=== PATIENT | female | born 1990 | race Caucasian/White ===

== ENCOUNTER 2017-10-09 09:32 | Emergency (ER) | payer OTHER ==
[2017-10-09] MEDS ORDERED: oxyCODONE/Acetamin 5/325 MG* TAB PO ONE (10:51)
[2017-10-09] MEDS ORDERED: Ketorolac INJ* 60 MG/2 ML VIAL IM ONE (11:32)
--- NOTE | 2017-10-09 11:37 | RAD ---
INDICATION: Atraumatic right shoulder pain COMPARISON: December 05, 2008 TECHNIQUE: AP, lateral, and oblique views were obtained. FINDINGS: The bony structures, joint spaces, and soft tissues are normal for age. The stomach is made of a bone island of the humeral head, unchanged. IMPRESSION: NEGATIVE EXAMINATION.
--- NOTE | 2017-10-09 11:40 | ED ---
Upper Extremity Pain - HPI Summary HPI Summary: Pt here w/ Rt shoulder pain. Has this intermittently on both sides but woke at 5am today with sharp pain and felt like her muscles were being ripped from the joint. Denies numbness, tingling, weakness. Pain w/ movement of shoulder which she reports is limited. Tried heat which helped while it was on but pain bad again when as soon as she takes it off. Has not tried ibuprofen yet as she's taken this a lot in the past w/o much relief. She reports she's allergic to the orange coating on motrin only, not motrin itself - has had other versions of ibuprofen w/o orange dye and tolerated well. No h/o recent fluoroquinolones, steroids or joints/tendon issues. Job requires lifting, cooking. - History of Current Complaint Chief Complaint: EDShoulderClaMichele Stated Complaint: RIGHT SHOULDER PAIN Time Seen by Provider: 10/09/17 11:13 Hx Obtained From: Patient Hx Last Menstrual Period: 08/14/16 - Allergies/Home Medications Allergies/Adverse Reactions: Allergies Allergy/AdvReac Type Severity Reaction Status Date / Time Ibuprofen [From Motrin] Allergy Nausea And Verified 10/09/17 09:56 Vomiting Home Medications: Home Medications DOXYcycline CAP(*) [DOXYcycline 100MG CAP(*)] 1 cap PO BID 10/09/17 [History Confirmed 10/09/17] PMH/Surg Hx/FS Hx/Imm Hx Previously Healthy: Yes Endocrine/Hematology History: Denies: Hx Diabetes Cardiovascular History: Denies: Hx Congestive Heart Failure, Hx Hypertension Respiratory History: Denies: Hx Asthma History: Denies: Hx Renal Disease Sensory History: Reports: Hx Contacts or Glasses - GLASSES Denies: Hx Hearing Aid Opthamlomology History: Reports: Hx Contacts or Glasses - GLASSES Neurological History: Reports: Hx Headaches - ABOUT ONCE A WEEK Psychiatric History: Reports: Hx Depression, Hx Community Mental Health Tx - Yaen Vieira says "yes." Flaquita said she sees Charlene Gray. MOMS rpt inaccurate, Other Psychiatric Issues/Disorders - Patient was on Zoloft for depression. Discontinued 6-7 months ago. Denies: Hx Anxiety, Hx Attention Deficit Hyperactivity Disorder, Hx Eating Disorder, Hx Panic Disorder, Hx Post Traumatic Stress Disorder, Hx Inpatient Treatment, Hx Schizophrenia, Hx Bipolar Disorder, Hx Suicide Attempt, Hx of Violent Episodes Against Others, Hx Substance Abuse - Surgical History Surgery Procedure, Year, and Place: TUBAL LIGATION, CERVICAL BX Hx Anesthesia Reactions: No Infectious Disease History: No Infectious Disease History: Denies: Traveled Outside the [place] in Last 30 Days - Family History Known Family History: Positive: Cardiac Disease, Hypertension, Respiratory Disease - Asthma - Social History Occupation: Employed Full-time Alcohol Use: Rare Hx Substance Use: No Substance Use Type: Reports: None Hx Tobacco Use: Yes Smoking Status (MU): Current Every Day Smoker Amount Used/How Often: 1 pack for 4-5 days Review of Systems Constitutional: Negative Negative: Fever, Chills, Fatigue Cardiovascular: Negative Negative: Palpitations, Chest Pain Respiratory: Negative Negative: Shortness Of Breath, Cough Gastrointestinal: Negative Negative: Vomiting, Nausea Positive: no symptoms reported Positive: Arthralgia, Myalgia, Decreased ROM. Negative: Edema Skin: Negative Neurological: Negative Psychological: Normal All Other Systems Reviewed And Are Negative: Yes Physical Exam Triage Information Reviewed: Yes Vital Signs On Initial Exam: Initial Vitals Temp Pulse Resp BP Pulse Ox 97.6 F 78 16 119/59 100 10/09/17 09:34 10/09/17 09:34 10/09/17 09:34 10/09/17 09:34 10/09/17 09:34 Vital Signs Reviewed: Yes Appearance: Positive: Well-Appearing, Well-Nourished, Pain Distress - not at rest, only w/ movement of shoulder on Rt Skin: Positive: Warm, Dry - no erythema, no ecchymosis over affected area Head/Face: Positive: Normal Head/Face Inspection Eyes: Positive: Normal, EOMI ENT: Positive: Hearing grossly normal, Pharynx normal - mucosa moist Neck: Positive: Supple Respiratory/Lung Sounds: Positive: Breath Sounds Present Cardiovascular: Positive: Normal, Pulses are Symmetrical in both Upper and Lower Extremities Abdomen Description: Positive: Nontender, Soft Musculoskeletal: Positive: Strength/ROM Intact - Rt elbow, wrist, phalanges, Limited @ - Rt shoulder - limited w/ abduction, flexion, internal/external rotation; pain w/ empty can Neurological: Positive: Normal, Sensory/Motor Intact, Alert, Oriented to Person Place, Time, CN Intact II-III Psychiatric: Positive: Normal Diagnostics - Vital Signs Vital Signs Temp Pulse Resp BP Pulse Ox 10/09/17 10:59 69 98 10/09/17 10:57 16 10/09/17 10:30 67 104/57 98 10/09/17 10:00 73 120/60 97 10/09/17 09:47 81 117/61 98 10/09/17 09:34 97.6 F 78 16 119/59 100 - Laboratory Lab Statement: Any lab studies that have been ordered have been reviewed, and results considered in the medical decision making process. Course/Dx - Diagnoses Provider Diagnoses: Right shoulder pain Discharge - Discharge Plan Condition: Stable Disposition: HOME Patient Education Materials: Shoulder Pain (ED) Forms: *Work Release Referrals: Vick Badillo MD [Primary Care Provider] - Additional Instructions: Rest, ice alternating with heat and gentle stretches Ibuprofen 600mg every 6 hours with food alernating with acetaminophen 650mg every 6 hours for pain You may also try a topical analgesic (ie. biofreeze, etc) Use sling for comfort only - make sure to remove arm and move fingers, wrist, elbow, shoulder to prevent atrophy/stiffness Call PCP Wednesday to schedule appointment this week if pain persists. *If you develop numbness, tingling, weakness, return to ED
[2017-10-09 12:25] VITALS: BP 100/53
== END 2017-10-09 12:25 | disposition home or self-care (01) ==
LOC: ED 09:32
DX: M25.511 Pain in right shoulder (principal); F17.210 Nicotine dependence, cigarettes, uncomplicated
CPT/HCPCS: 99283; A9270-GY; J1885

== ENCOUNTER 2018-01-04 12:03 | Emergency (ER) | payer OTHER ==
[2018-01-04 13:04] LABS: ABS Basophils 0 10^3/ul (0-0.2); ABS Eosinophils 0.1 10^3/ul (0-0.6); ABS Monocytes 1.1 10^3/ul (0-0.8); ABS Neutrophils 5.7 10^3/ul (1.5-7.7); ABS Nucleated RBC 0 10^3/ul; Eosinophil % 0.7 % (0-6); Hematocrit 36 % (35-47); Hemoglobin 12.3 g/dl (12.0-16.0); Lymphocyte % 22.5 % (25-47); Mean Corpuscular HGB Conc 34 g/dl (31-36); Mean Corpuscular Hemoglobin 31 pg (27-31); Mean Corpuscular Volume 92 fL (80-97); Mean Platelet Volume 9 um3 (7.4-10.4); Nucleated Red Blood Cells % 0; Platelet Count 228 10^3/ul (150-450); Red Blood Count 3.94 10^6/ul (4.0-5.4); Red Cell Distribution Width 15 % (10.5-15)
--- NOTE | 2018-01-04 13:12 | RAD ---
INDICATION: Pleuritic chest pain COMPARISON: None TECHNIQUE: PA and lateral dual-energy views were obtained. FINDINGS: Bones/Soft Tissues: There are no acute bony findings. Cardiomediastinal: The cardiomediastinal silhouette is normal. Lungs: There are no infiltrates. There is no pneumothorax. Pleura: There are no pleural effusions. Other: None IMPRESSION: NORMAL CHEST.
[2018-01-04 13:24] LABS: EGFR Non-African American 91.4 (>60)
[2018-01-04] MEDS ORDERED: traMADol TAB* 50 MG PO ONE (13:27)
[2018-01-04 14:21] VITALS: BP 100/51
--- NOTE | 2018-01-15 14:04 | ED ---
Jina Dotson Gabriel, scribed for Leander Jonas MD on 01/04/18 at 1237 . HPI Chest Pain - HPI Summary HPI Summary: This patient is a 27 year old F presenting to [facility] with a chief complaint of sudden CP since last night at midnight that is worse today. The pain began while she was at work, she had just finished and sat down when it began. The patient rates the pain 7/10 in severity and states it radiates into her back/ shoulder. Symptoms aggravated by breathing. Patient reports ENAMORADO and cough. Patient denies n/v, fever, chills, diaphoresis, ABD pain, nausea, and long travel. - History of Current Complaint Chief Complaint: EDChestPainROMI Hx Obtained From: Patient Hx Last Menstrual Period: 08/14/16 Onset/Duration: Still Present Time of Onset: 23:55 Timing: Constant Initial Severity: Severe Current Severity: Severe Pain Intensity: 7 Pain Scale Used: 0-10 Numeric Chest Pain Location: Diffuse Chest Pain Radiates: Yes Chest Pain Radiates To:: Shoulder Character: Sharp/Stabbing Associated Signs and Symptoms: Positive: Negative - n/v, fever, chills, diaphoresis, ABD pain, nausea, and long travel., Cough, Other: - ENAMORADO - Allergy/Home Medications Allergies/Adverse Reactions: Allergies Allergy/AdvReac Type Severity Reaction Status Date / Time ibuprofen [From Motrin] Allergy Nausea And Verified 01/04/18 12:12 Vomiting PMH/Surg Hx/FS Hx/Imm Hx Endocrine/Hematology History: Denies: Hx Diabetes Cardiovascular History: Denies: Hx Congestive Heart Failure, Hx Hypertension Respiratory History: Denies: Hx Asthma History: Denies: Hx Renal Disease Sensory History: Reports: Hx Contacts or Glasses - GLASSES Denies: Hx Hearing Aid Opthamlomology History: Reports: Hx Contacts or Glasses - GLASSES Neurological History: Reports: Hx Headaches - ABOUT ONCE A WEEK Psychiatric History: Reports: Hx Depression, Hx Community Mental Health Tx - Yane Vieira says "yes." Flaquita said she sees Charlene Gray. MOMS rpt inaccurate, Other Psychiatric Issues/Disorders - Patient was on Zoloft for depression. Discontinued 6-7 months ago. Denies: Hx Anxiety, Hx Attention Deficit Hyperactivity Disorder, Hx Eating Disorder, Hx Panic Disorder, Hx Post Traumatic Stress Disorder, Hx Inpatient Treatment, Hx Schizophrenia, Hx Bipolar Disorder, Hx Suicide Attempt, Hx of Violent Episodes Against Others, Hx Substance Abuse - Surgical History Surgery Procedure, Year, and Place: TUBAL LIGATION, CERVICAL BX Hx Anesthesia Reactions: No Infectious Disease History: No Infectious Disease History: Denies: Traveled Outside the [place] in Last 30 Days - Family History Known Family History: Positive: Cardiac Disease, Hypertension, Respiratory Disease - Asthma - Social History Occupation: Employed Full-time - [employer] Alcohol Use: Rare Hx Substance Use: No Substance Use Type: Reports: None Hx Tobacco Use: Yes Smoking Status (MU): Current Every Day Smoker Amount Used/How Often: 1 pack for 4-5 days Review of Systems Negative: Fever, Chills, Skin Diaphoresis Negative: Erythema Negative: Sore Throat Positive: Chest Pain Positive: Shortness Of Breath - ENAMORADO , Cough Negative: Abdominal Pain, Vomiting, Nausea Negative: dysuria, hematuria Negative: Myalgia, Edema Negative: Rash Neurological: Negative - dizziness All Other Systems Reviewed And Are Negative: Yes Physical Exam - Summary Physical Exam Summary: Constitutional: Well-developed, Well-nourished, Alert. (-) Distressed Skin: Warm, Dry HENT: Normocephalic; Atraumatic Eyes: Conjunctiva normal Neck: Musculoskeletal ROM normal neck. (-) JVD, (-) Stridor, (-) Tracheal deviation Cardio: Rhythm regular, rate normal, Heart sounds normal; Intact distal pulses; The pedal pulses are 2+ and symmetric. Radial pulses are 2+ and symmetric. (-) Murmur Pulmonary/Chest wall: Effort normal. (-) Respiratory distress, (-) Wheezes, (-) Rales Abd: Soft, (-) Tenderness, (-) Distension, (-) Guarding, (-) Rebound Musculoskeletal: (-) Edema, reproducible pain with shoulder rotation, anteriorly and posteriorly. Lymph: (-) Cervical adenopathy Neuro: Alert, Oriented x3 Psych: Mood and affect Normal Triage Information Reviewed: Yes Vital Signs On Initial Exam: Initial Vitals Temp Pulse Resp BP Pulse Ox 99.1 F 80 20 125/67 100 01/04/18 12:07 01/04/18 12:07 01/04/18 12:07 01/04/18 12:01/04/18 12:07 Vital Signs Reviewed: Yes Diagnostics - Vital Signs Vital Signs Temp Pulse Resp BP Pulse Ox 01/04/18 12:07 99.1 F 80 20 125/67 100 - Laboratory Lab Results: Lab Results 01/04/18 01/04/18 01/04/18 Range/Units 12:57 12:57 12:57 WBC 9.0 (3.5-10.8) 10^3/ul RBC 3.94 L (4.0-5.4) 10^6/ul Hgb 12.3 (12.0-16.0) g/dl Hct 36 (35-47) % MCV 92 (80-97) fL MCH 31 (27-31) pg MCHC 34 (31-36) g/dl RDW 15 (10.5-15) % Plt Count 228 (150-450) 10^3/ul MPV 9 (7.4-10.4) um3 Neut % (Auto) 63.9 (38-83) % Lymph % (Auto) 22.5 L (25-47) % [place] % (Auto) 12.6 H (0-7) % Eos % (Auto) 0.7 (0-6) % Baso % (Auto) 0.3 (0-2) % Absolute Neuts (auto) 5.7 (1.5-7.7) 10^3/ul Absolute Lymphs (auto) 2.0 (1.0-4.8) 10^3/ul Absolute Monos (auto) 1.1 H (0-0.8) 10^3/ul Absolute Eos (auto) 0.1 (0-0.6) 10^3/ul Absolute Basos (auto) 0 (0-0.2) 10^3/ul Absolute Nucleated RBC 0 10^3/ul Nucleated RBC % 0 D-Dimer, Quantitative < 200 (Less Than 230) ng/mL Sodium 139 (133-145) mmol/L Potassium 3.7 (3.5-5.0) mmol/L Chloride 108 (101-111) mmol/L Carbon Dioxide 25 (22-32) mmol/L Anion Gap 6 (2-11) mmol/L BUN 7 (6-24) mg/dL Creatinine 0.75 (0.51-0.95) mg/dL Est GFR ( Amer) 117.5 (>60) Est GFR (Non-Af Amer) 91.4 (>60) BUN/Creatinine Ratio 9.3 (8-20) Glucose 97 (70-100) mg/dL Lactic Acid (0.5-2.0) mmol/L Calcium 9.1 (8.6-10.3) mg/dL Total Bilirubin 0.40 (0.2-1.0) mg/dL AST 12 L (13-39) U/L ALT 8 (7-52) U/L Alkaline Phosphatase 49 (34-104) U/L Troponin I 0.00 (<0.04) ng/mL Total Protein 6.5 (6.4-8.9) g/dL Albumin 3.9 (3.2-5.2) g/dL Globulin 2.6 (2-4) g/dL Albumin/Globulin Ratio 1.5 (1-3) // Range/Units 12:57 WBC (3.5-10.8) 10^3/ul RBC (4.0-5.4) 10^6/ul Hgb (12.0-16.0) g/dl Hct (35-47) % MCV (80-97) fL MCH (27-31) pg MCHC (31-36) g/dl RDW (10.5-15) % Plt Count (150-450) 10^3/ul MPV (7.4-10.4) um3 Neut % (Auto) (38-83) % Lymph % (Auto) (25-47) % [place] % (Auto) (0-7) % Eos % (Auto) (0-6) % Baso % (Auto) (0-2) % Absolute Neuts (auto) (1.5-7.7) 10^3/ul Absolute Lymphs (auto) (1.0-4.8) 10^3/ul Absolute Monos (auto) (0-0.8) 10^3/ul Absolute Eos (auto) (0-0.6) 10^3/ul Absolute Basos (auto) (0-0.2) 10^3/ul Absolute Nucleated RBC 10^3/ul Nucleated RBC % D-Dimer, Quantitative (Less Than 230) ng/mL Sodium (133-145) mmol/L Potassium (3.5-5.0) mmol/L Chloride (101-111) mmol/L Carbon Dioxide (22-32) mmol/L Anion Gap (2-11) mmol/L BUN (6-24) mg/dL Creatinine (0.51-0.95) mg/dL Est GFR ( Amer) (>60) Est GFR (Non-Af Amer) (>60) BUN/Creatinine Ratio (8-20) Glucose (70-100) mg/dL Lactic Acid 1.2 (0.5-2.0) mmol/L Calcium (8.6-10.3) mg/dL Total Bilirubin (0.2-1.0) mg/dL AST (13-39) U/L ALT (7-52) U/L Alkaline Phosphatase (34-104) U/L Troponin I (<0.04) ng/mL Total Protein (6.4-8.9) g/dL Albumin (3.2-5.2) g/dL Globulin (2-4) g/dL Albumin/Globulin Ratio (1-3) Result Diagrams: 01/04/18 12:57 01/04/18 12:57 Lab Statement: Any lab studies that have been ordered have been reviewed, and results considered in the medical decision making process. - Radiology CXR Radiology Interpretation Completed By: Radiologist - normal chest ED physician has reviewed this radiology report. - EKG 12:07 Cardiac Rate: NL EKG Rhythm: Sinus Rhythm - at 88 BPM EKG Interpretation: No STEMI Re-Evaluation - Re-Evaluation First Eval Re-Evaluation Time: 14:25 Change: Unchanged Comment: I discussed test results and discharge with the patient. Chest Pain Course/Dx - Course Assessment/Plan: An EKG reveals NSR. CXR reveals, per radiologist, normal chest. I reviewed records from 09/2017. The patient was seen for right shoulder pain. She has a history of bilateral shoulder pain. Pt declined pain medication. Test results with no significant abnormalities. The D-dimer was negative and the patient is not high risk for PE. I believe SOB is secondary to pain. In the ED course the patient was given Ultram and the patient felt better. Dx musculoskeletal CP. Patient will be discharged with prescription for Ultram and follow up from her PCP in 2 days. The patient is agreeable with this plan. - Diagnoses Provider Diagnoses: Musculoskeletal chest pain Discharge - Sign-Out/Discharge Documenting (check all that apply): Discharge - DC - Discharge Plan Condition: Stable Disposition: HOME Prescriptions: traMADol TAB* [Ultram*] 50 mg PO Q6HR PRN #8 tab MDD 4 PRN Reason: Pain Scale 6-10 Patient Education Materials: Chest Wall Pain (ED) Forms: *Work Release Referrals: Vick Badillo MD [Primary Care Provider] - 2 Days Additional Instructions: RETURN TO EMERGENCY DEPARTMENT FOR ANY NEW OR WORSENING SYMPTOMS - Billing Disposition and Condition Condition: STABLE Disposition: HOME The documentation as recorded by the Jina carlos Gabriel accurately reflects the service I personally performed and the decisions made by Sumi dejesus Jerry, MD.
== END 2018-01-04 14:39 | disposition home or self-care (01) ==
LOC: ED 12:03
DX: R07.9 Chest pain, unspecified (principal); F17.210 Nicotine dependence, cigarettes, uncomplicated; R06.02 Shortness of breath
CPT/HCPCS: 36415; 71046; 80053; 83605; 84484; 85025; 85379; 93005; 99283; A9270-GY

== ENCOUNTER → 2018-07-13 20:39 | Emergency (ER) | payer OTHER ==
[~2018-07-13 20:39] MED LIST: Ketorolac INJ* 60 MG/2 ML VIAL IM ONE; LORazepam TAB(*) 1 MG PO ONE; Lidocaine 1%* 5 ML VIAL INJ ONE; predniSONE TAB* 20 MG PO ONE
--- NOTE | 2018-07-14 00:15 | ED ---
Back Pain - HPI Summary HPI Summary: Patient is a 27-year-old female with history of chronic back pain presenting to the ED with right sided low back pain radiating into the hip. Denies injury or trauma. She states she has Vicodin and Flexeril at home which she has been taking without relief. Symptoms have been present for approximately 5 days. Continues to ambulate well, but with pain. Denies any numbness or tingling into the leg or the foot. Denies any bladder or bowel dysfunction. She states she normally comes to the ED and needs to have Dilaudid or morphine for symptom relief. - History of Current Complaint Chief Complaint: EDBackInjuryPain Stated Complaint: RT HIP/LOWER BACK PAIN Time Seen by Provider: 07/13/18 21:05 Hx Obtained From: Patient Hx Last Menstrual Period: 08/14/16 Onset/Duration: Sudden Onset, Lasting Days Onset/Duration: Started Days Ago Timing: Constant Back Pain Location: Is Discrete @ - right sided low back pain extending to the buttocks Severity Initially: Moderate Severity Currently: Moderate Pain Intensity: 7 Pain Scale Used: 0-10 Numeric Character: Aching Aggravating Symptom(s): Movement Alleviating Symptom(s): Rest Associated Signs And Symptoms: Positive: Negative. Negative: Swelling, Redness , Bruising - Risk Factors AAA Risk Factors: Negative TAD Risk Factors: Negative Cauda Equina Risk Factors: Negative Epidural Abscess Risk Factors: Negative - Allergies/Home Medications Allergies/Adverse Reactions: Allergies Allergy/AdvReac Type Severity Reaction Status Date / Time ibuprofen [From Motrin] Allergy Nausea And Verified 07/13/18 20:44 Vomiting PMH/Surg Hx/FS Hx/Imm Hx Previously Healthy: Yes Endocrine/Hematology History: Denies: Hx Diabetes Cardiovascular History: Denies: Hx Congestive Heart Failure, Hx Hypertension Respiratory History: Denies: Hx Asthma History: Denies: Hx Renal Disease Sensory History: Reports: Hx Contacts or Glasses - GLASSES Denies: Hx Hearing Aid Opthamlomology History: Reports: Hx Contacts or Glasses - GLASSES Neurological History: Reports: Hx Headaches - ABOUT ONCE A WEEK Psychiatric History: Reports: Hx Depression, Hx Community Mental Health Tx - Yane Vieira says "yes." Flaquita said she sees Charlene Gray. MOMS rpt inaccurate, Other Psychiatric Issues/Disorders - Patient was on Zoloft for depression. Discontinued 6-7 months ago. Denies: Hx Anxiety, Hx Attention Deficit Hyperactivity Disorder, Hx Eating Disorder, Hx Panic Disorder, Hx Post Traumatic Stress Disorder, Hx Inpatient Treatment, Hx Schizophrenia, Hx Bipolar Disorder, Hx Suicide Attempt, Hx of Violent Episodes Against Others, Hx Substance Abuse - Surgical History Surgery Procedure, Year, and Place: TUBAL LIGATION, CERVICAL BX Hx Anesthesia Reactions: No - Immunization History Hx Pertussis Vaccination: No Immunizations Up to Date: Yes Infectious Disease History: No Infectious Disease History: Denies: Traveled Outside the [place] in Last 30 Days - Family History Known Family History: Positive: Cardiac Disease, Hypertension, Respiratory Disease - Asthma - Social History Occupation: Unemployed Lives: With Family Alcohol Use: Rare Hx Substance Use: No Substance Use Type: Reports: None Substance Use Comment - Amount & Last Used: occassional use Hx Tobacco Use: Yes Smoking Status (MU): Current Every Day Smoker Amount Used/How Often: 1 pack for 4-5 days Review of Systems Constitutional: Negative Negative: Fever, Chills, Fatigue, Skin Diaphoresis Negative: Palpitations, Chest Pain Negative: Shortness Of Breath, Cough Genitourinary: Negative Positive: no symptoms reported, see HPI Positive: Arthralgia, Myalgia Skin: Negative Neurological: Negative All Other Systems Reviewed And Are Negative: Yes Physical Exam Triage Information Reviewed: Yes Vital Signs On Initial Exam: Initial Vitals Temp Pulse Resp BP Pulse Ox 97.9 F 102 16 115/60 96 07/13/18 20:40 07/13/18 20:40 07/13/18 20:40 07/13/18 20:40 07/13/18 20:40 Vital Signs Reviewed: Yes Appearance: Positive: Well-Appearing, Well-Nourished Skin: Positive: Warm, Skin Color Reflects Adequate Perfusion Head/Face: Positive: Normal Head/Face Inspection Eyes: Positive: EOMI, THAD, Conjunctiva Clear Neck: Positive: Supple, No Lymphadenopathy Respiratory/Lung Sounds: Positive: Clear to Auscultation, Breath Sounds Present Cardiovascular: Positive: RRR, Pulses are Symmetrical in both Upper and Lower Extremities Musculoskeletal: Positive: Pain @ - right low back pain extending into the buttocks Neurological: Positive: Sensory/Motor Intact, Alert, Oriented to Person Place, Time, Speech Normal Psychiatric: Positive: Affect/Mood Appropriate Diagnostics - Vital Signs Vital Signs Temp Pulse Resp BP Pulse Ox 07/13/18 23:00 17 07/13/18 20:40 97.9 F 102 16 115/60 96 - Laboratory Lab Statement: Any lab studies that have been ordered have been reviewed, and results considered in the medical decision making process. Back Pain Course/Dx - Course Course Of Treatment: During the course of treatment, the patient is evaluated for right-sided low back pain extending into the buttocks area. On physical examination, there is no signs of trauma, ecchymosis no step-off to the thoracic or lumbar area. Patient denies any numbness or tingling. I have offered steroids as well as muscle relaxers. She is willing to try the Ativan as well as prednisone. I have also given her 10 mL lidocaine into the area with good relief. Heat pad over the area with good relief. She is given Toradol prior to discharge and this was prescribed to her. Prednisone also prescribed to her. I've declined her requests for Dilaudid and morphine for her back pain as this is generally not indicated for back pain, chronic or otherwise. - Diagnoses Differential Diagnosis/HQI/PQRI: Positive: Herniated Disc, Strain, Sprain Provider Diagnoses: Low back pain Discharge - Sign-Out/Discharge Documenting (check all that apply): Patient Departure - Discharge Plan Condition: Stable Disposition: HOME Prescriptions: Ketorolac TAB * [Toradol TAB *] 10 mg PO Q6H #16 tab predniSONE TAB* [Deltasone TAB*] 50 mg PO DAILY #5 tab Patient Education Materials: Lower Back Exercises (ED) Referrals: Vick Badillo MD [Primary Care Provider] - Additional Instructions: Toradol four times daily x 4 days You may use Tylenol intermittently DO NOT TAKE IBUPROFEN WHILE TAKING THIS MEDICATION Continue with heat Continue with flexeril - Billing Disposition and Condition Condition: STABLE Disposition: Home
[2018-07-14 05:10] VITALS: BP 131/68
== END | disposition home or self-care (01) ==
LOC: ED 20:39
DX: M54.5 Low back pain (principal); F17.200 Nicotine dependence, unspecified, uncomplicated; Z88.6 Allergy status to analgesic agent
CPT/HCPCS: 96372; 99282; A9270-GY; J1885; J7512

== ENCOUNTER 2018-11-15 05:17 | Emergency (ER) | payer SELFPAY ==
[2018-11-15] MEDS ORDERED: Naproxen TAB* 250 MG PO ONE (05:45)
[2018-11-15 06:22] LABS: ABS Basophils 0 10^3/ul (0-0.2); ABS Eosinophils 0.2 10^3/ul (0-0.6); ABS Lymphocytes 1.7 10^3/ul (1.0-4.8); ABS Monocytes 1.1 10^3/ul (0-0.8); ABS Neutrophils 6.3 10^3/ul (1.5-7.7); ABS Nucleated RBC 0 10^3/ul; Eosinophil % 1.7 %; Hematocrit 41 % (35-47); Hemoglobin 13.9 g/dl (12.0-16.0); Mean Corpuscular HGB Conc 34 g/dl (31-36); Mean Corpuscular Hemoglobin 33 pg (27-31); Mean Corpuscular Volume 96 fL (80-97); Mean Platelet Volume 8.4 fL (7.4-10.4); Nucleated Red Blood Cells % 0.1; Platelet Count 239 10^3/ul (150-450); Red Cell Distribution Width 12 % (10.5-15); White Blood Count 9.2 10^3/ul (3.5-10.8)
[2018-11-15 06:29] LABS: Activated Partial Thrombo Time 31.6 seconds (26.0-36.3); INR 0.95 (0.77-1.02)
[2018-11-15 06:39] LABS: ALT 16 U/L (7-52); AST 18 U/L (13-39); Albumin/Globulin Ratio 1.3 (1-3); Alkaline Phosphatase 74 U/L (34-104); Anion Gap 7 mmol/L (2-11); BUN/Creatinine Ratio 16.5 (8-20); Blood Urea Nitrogen 14 mg/dL (6-24); CO2 Carbon Dioxide 26 mmol/L (22-32); Calcium 9.1 mg/dL (8.6-10.3); Chloride 105 mmol/L (101-111); Creatine Kinase 114 U/L (10-223); EGFR Non-African American 78.5 (>60); Glucose 97 mg/dL (70-100); Magnesium 1.9 mg/dL (1.9-2.7); Potassium 3.5 mmol/L (3.5-5.0); Sodium 138 mmol/L (135-145)
[2018-11-15 06:44] LABS: Myoglobin 19.4 ng/mL (14.3-65.8)
[2018-11-15 06:47] LABS: HCG Pregnancy < 0.60 mIU/mL
[2018-11-15 07:20] VITALS: BP 104/81
--- NOTE | 2018-11-15 09:26 | ED ---
HPI Chest Pain - HPI Summary HPI Summary: Patient is a 28-year-old female presenting to the ED with left-sided chest sharp pain radiating to the left shoulder and down into the elbow which was acute onset 5 hours [place]T [place]OL[place]. She states she was at rest when the pain began. She does have a history of anxiety, but states this feels different. Endorses SOB. Denies worsening symptoms with lying flat or sitting upright. Symptoms were not made better when she took her at home dose of Flexeril. She denies any injury or known pulled muscle. She has never had anything like this in the past. Her maternal grandfather and paternal grandmother both had cardiac issues , but she has never had a personal history. Endorses a smoking history 4-5 cigarettes per day. Denies alcohol use. She does endorse some recent stressors. She states she is otherwise healthy and takes no medications. She denies any recent travel, calf pain, OCP use. - History of Current Complaint Chief Complaint: EDChestPainROMI Time Seen by Provider: 11/15/18 05:35 Hx Obtained From: Patient Hx Last Menstrual Period: 08/14/16 Onset/Duration: Started Hours Ago Timing: Constant Initial Severity: Moderate Current Severity: Moderate Pain Intensity: 0 Pain Scale Used: 0-10 Numeric Chest Pain Location: Left Anterior Chest Pain Radiates: Yes Chest Pain Radiates To:: Shoulder, Arm Character: Dull/Aching Aggravating Factor(s): Nothing Alleviating Factor(s): Nothing Associated Signs and Symptoms: Positive: Anxiety. Negative: Vision Changes, Recent Stress, Palpitations, Cough, Productive Cough, Nonproductive Cough, Edema - Risk Factors Pulmonary Embolism Risk Factors: Negative TAD Risk Factors: Negative - Allergy/Home Medications Allergies/Adverse Reactions: Allergies Allergy/AdvReac Type Severity Reaction Status Date / Time ibuprofen [From Motrin] Allergy Nausea And Verified 11/15/18 05:24 Vomiting Home Medications: Home Medications Cyclobenzaprine TAB* [Flexeril 10 MG TAB*] 10 mg PO BID PRN 11/15/18 [History Confirmed 11/15/18] Hydrocodone/Acetaminophen [Vicodin 5-300 mg] 1 tab PO Q6HR PRN 11/15/18 [ History Confirmed 11/15/18] PMH/Surg Hx/FS Hx/Imm Hx Previously Healthy: Yes Endocrine/Hematology History: Denies: Hx Diabetes Cardiovascular History: Denies: Hx Congestive Heart Failure, Hx Hypertension Respiratory History: Denies: Hx Asthma History: Denies: Hx Renal Disease Sensory History: Reports: Hx Contacts or Glasses - GLASSES Opthamlomology History: Reports: Hx Contacts or Glasses - GLASSES Neurological History: Reports: Hx Headaches - ABOUT ONCE A WEEK Psychiatric History: Reports: Hx Depression, Hx Community Mental Health Tx - Yane Vieira says "yes." Flaquita said she sees Charlene Gray. [facility] rpt inaccurate, Other Psychiatric Issues/Disorders - Patient was on Zoloft for depression. Discontinued 6-7 months ago. Denies: Hx Anxiety, Hx Attention Deficit Hyperactivity Disorder, Hx Eating Disorder, Hx Panic Disorder, Hx Post Traumatic Stress Disorder, Hx Inpatient Treatment, Hx Schizophrenia, Hx Bipolar Disorder, Hx Suicide Attempt, Hx of Violent Episodes Against Others, Hx Substance Abuse - Surgical History Surgery Procedure, Year, and Place: TUBAL LIGATION, CERVICAL BX Hx Anesthesia Reactions: No - Immunization History Hx Pertussis Vaccination: No Immunizations Up to Date: Yes Infectious Disease History: No Infectious Disease History: Denies: Traveled Outside the [place] in Last 30 Days - Family History Known Family History: Positive: Cardiac Disease, Hypertension, Respiratory Disease - Asthma - Social History Occupation: Employed Full-time Lives: With Family Alcohol Use: Rare Hx Substance Use: No Substance Use Type: Reports: None Substance Use Comment - Amount & Last Used: occassional use Hx Tobacco Use: Yes Smoking Status (MU): Current Every Day Smoker Amount Used/How Often: 1 pack for 4-5 days Review of Systems Constitutional: Negative Negative: Fever, Chills, Fatigue, Skin Diaphoresis Negative: Dental Pain, Sore Throat Positive: Chest Pain Positive: Shortness Of Breath. Negative: Cough Genitourinary: Negative Positive: no symptoms reported, see HPI Positive: Arthralgia Skin: Negative - left shoulder and upper arm pain Positive: Anxious All Other Systems Reviewed And Are Negative: Yes Physical Exam Triage Information Reviewed: Yes Vital Signs On Initial Exam: Initial Vitals Temp Pulse Resp BP Pulse Ox 98.2 F 103 20 126/82 99 11/15/18 05:21 11/15/18 05:21 11/15/18 05:21 11/15/18 05:21 11/15/18 05:21 Vital Signs Reviewed: Yes Appearance: Positive: Well-Appearing, Well-Nourished Skin: Positive: Warm, Skin Color Reflects Adequate Perfusion Head/Face: Positive: Normal Head/Face Inspection Eyes: Positive: EOMI, THAD, Conjunctiva Clear Neck: Positive: Supple, No Lymphadenopathy Respiratory/Lung Sounds: Positive: Clear to Auscultation, Breath Sounds Present Cardiovascular: Positive: RRR, Pulses are Symmetrical in both Upper and Lower Extremities Musculoskeletal: Positive: Normal, Strength/ROM Intact Neurological: Positive: Speech Normal Psychiatric: Positive: Affect/Mood Appropriate AVPU Assessment: Alert Diagnostics - Vital Signs Vital Signs Temp Pulse Resp BP Pulse Ox 11/15/18 07:19 97.8 F 67 16 104/81 95 11/15/18 05:21 98.2 F 103 20 126/82 99 - Laboratory Lab Results: Lab Results 11/15/18 11/15/18 11/15/18 Range/Units 06:11 06:11 06:11 WBC (3.5-10.8) 10^3/ul RBC (4.00-5.40) 10^6/ul Hgb (12.0-16.0) g/dl Hct (35-47) % MCV (80-97) fL MCH (27-31) pg MCHC (31-36) g/dl RDW (10.5-15) % Plt Count (150-450) 10^3/ul MPV (7.4-10.4) fL Neut % (Auto) % Lymph % (Auto) % [place] % (Auto) % Eos % (Auto) % Baso % (Auto) % Absolute Neuts (auto) (1.5-7.7) 10^3/ul Absolute Lymphs (auto) (1.0-4.8) 10^3/ul Absolute Monos (auto) (0-0.8) 10^3/ul Absolute Eos (auto) (0-0.6) 10^3/ul Absolute Basos (auto) (0-0.2) 10^3/ul Absolute Nucleated RBC 10^3/ul Nucleated RBC % INR (Anticoag Therapy) 0.95 (0.77-1.02) APTT 31.6 (26.0-36.3) seconds D-Dimer, Quantitative < 200 (Less Than 230) ng/mL Sodium (135-145) mmol/L Potassium (3.5-5.0) mmol/L Chloride (101-111) mmol/L Carbon Dioxide (22-32) mmol/L Anion Gap (2-11) mmol/L BUN (6-24) mg/dL Creatinine (0.51-0.95) mg/dL Est GFR ( Amer) (>60) Est GFR (Non-Af Amer) (>60) BUN/Creatinine Ratio (8-20) Glucose (70-100) mg/dL Lactic Acid (0.5-2.0) mmol/L Calcium (8.6-10.3) mg/dL Magnesium (1.9-2.7) mg/dL Total Bilirubin (0.2-1.0) mg/dL AST (13-39) U/L ALT (7-52) U/L Alkaline Phosphatase (34-104) U/L Total Creatine Kinase (10-223) U/L CK-MB (CK-2) (0.6-6.3) ng/mL Myoglobin (14.3-65.8) ng/mL Troponin I (<0.04) ng/mL B-Natriuretic Peptide 10 (<=100) pg/mL Total Protein (6.4-8.9) g/dL Albumin (3.2-5.2) g/dL Globulin (2-4) g/dL Albumin/Globulin Ratio (1-3) Beta HCG, Quant mIU/mL 11/15/18 11/15/18 11/15/18 Range/Units 06:11 06:11 06:11 WBC 9.2 (3.5-10.8) 10^3/ul RBC 4.20 (4.00-5.40) 10^6/ul Hgb 13.9 (12.0-16.0) g/dl Hct 41 (35-47) % MCV 96 (80-97) fL MCH 33 H (27-31) pg MCHC 34 (31-36) g/dl RDW 12 (10.5-15) % Plt Count 239 (150-450) 10^3/ul MPV 8.4 (7.4-10.4) fL Neut % (Auto) 68.1 % Lymph % (Auto) 18.0 % [place] % (Auto) 11.8 % Eos % (Auto) 1.7 % Baso % (Auto) 0.4 % Absolute Neuts (auto) 6.3 (1.5-7.7) 10^3/ul Absolute Lymphs (auto) 1.7 (1.0-4.8) 10^3/ul Absolute Monos (auto) 1.1 H (0-0.8) 10^3/ul Absolute Eos (auto) 0.2 (0-0.6) 10^3/ul Absolute Basos (auto) 0 (0-0.2) 10^3/ul Absolute Nucleated RBC 0 10^3/ul Nucleated RBC % 0.1 INR (Anticoag Therapy) (0.77-1.02) APTT (26.0-36.3) seconds D-Dimer, Quantitative (Less Than 230) ng/mL Sodium 138 (135-145) mmol/L Potassium 3.5 (3.5-5.0) mmol/L Chloride 105 (101-111) mmol/L Carbon Dioxide 26 (22-32) mmol/L Anion Gap 7 (2-11) mmol/L BUN 14 (6-24) mg/dL Creatinine 0.85 (0.51-0.95) mg/dL Est GFR ( Amer) 95.0 (>60) Est GFR (Non-Af Amer) 78.5 (>60) BUN/Creatinine Ratio 16.5 (8-20) Glucose 97 (70-100) mg/dL Lactic Acid 1.1 (0.5-2.0) mmol/L Calcium 9.1 (8.6-10.3) mg/dL Magnesium 1.9 (1.9-2.7) mg/dL Total Bilirubin 0.30 (0.2-1.0) mg/dL AST 18 (13-39) U/L ALT 16 (7-52) U/L Alkaline Phosphatase 74 (34-104) U/L Total Creatine Kinase 114 (10-223) U/L CK-MB (CK-2) 0.6 (0.6-6.3) ng/mL Myoglobin 19.4 (14.3-65.8) ng/mL Troponin I 0.00 (<0.04) ng/mL B-Natriuretic Peptide (<=100) pg/mL Total Protein 7.0 (6.4-8.9) g/dL Albumin 4.0 (3.2-5.2) g/dL Globulin 3.0 (2-4) g/dL Albumin/Globulin Ratio 1.3 (1-3) Beta HCG, Quant < 0.60 mIU/mL Result Diagrams: 11/15/18 06:11 11/15/18 06:11 Lab Statement: Any lab studies that have been ordered have been reviewed, and results considered in the medical decision making process. Chest Pain Course/Dx - Course Course Of Treatment: During the course treatment, the patient is evaluated for left-sided stabbing chest pain radiating to the left shoulder and down into the left elbow. EKG shows normal sinus rhythm. She is able to move the arm without limitations. She denies any fevers, sweats, chills. Symptoms began approximately 5 hours ago, were acute in onset and hasn't improved however continues to remain on arrival. She's never had anything like this before. Symptoms are not worse or better with positioning, medications or rest. She denies numbness or tingling. She endorses SOB. Vital signs on arrival are stable except for slightly tachycardic at 103. Labs obtained including a troponin, all which were unremarkable. Chest x-ray shows no acute cardiopulmonary disease. On physical examination there is no pain to palpation of the chest wall bilaterally. Her symptoms do not radiate through to the back. Given ibuprofen with minimal relief. Discussed with the patient treatment options. Patient would like to be discharged home at this time, but states she'll follow-up with her PCP or return to the ED if any symptoms become worse. She is diagnosed with atypical chest pain. - Chest Pain Differential Diagnosis/HQI/PQRI: Acute MD, Angina, Chest Wall - Diagnoses Provider Diagnoses: Atypical chest pain Discharge - Sign-Out/Discharge Documenting (check all that apply): Patient Departure - Discharge Plan Condition: Stable Disposition: HOME Referrals: Vick Badillo MD [Primary Care Provider] - Additional Instructions: Please follow up with your PCP If symptoms become worse, return to the ED Ibuprofen 600mg three times daily for inflammation Flexeril as needed - Billing Disposition and Condition Condition: STABLE Disposition: Home
== END 2018-11-15 07:20 | disposition home or self-care (01) ==
LOC: ED 05:17
DX: R07.89 Other chest pain (principal); R06.02 Shortness of breath; F41.9 Anxiety disorder, unspecified; F17.210 Nicotine dependence, cigarettes, uncomplicated
CPT/HCPCS: 36415; 71046; 80053; 82550; 82553; 83605; 83735; 83874; 83880; 84484; 84702; 85025; 85379; 85610; 85730; 93005; 99282; A9270-GY

== ENCOUNTER 2023-04-16 21:23 | Observation (INO) ==
[2023-04-16] MEDS ORDERED: Clindamycin 600 MG/D5W BAG 600 MG/50 ML BAG IV ONE (21:32)
[2023-04-16] MEDS ORDERED: cefTRIAXone 2 GM ADDV.VIAL 2 GM in NS 0.9% 100 ml BAG 100 ML IV ONE (21:37)
[2023-04-16] MEDS ORDERED: cefTRIAXone 2 gm/50 mL D5W 2 GM/50 ML BAG IV ONE (21:45)
[2023-04-16] MEDS ORDERED: Vancomycin 1,250 MG in NS 0.9% 250 ml 250 ML IVPB ONE (22:00)
[2023-04-16 22:40] LABS: ABS Basophils 0.1 10^3/uL (0.0-0.1); ABS Eosinophils 0.5 10^3/uL (0.0-0.5); ABS Lymphocytes 3.4 10^3/uL (1.0-4.8); ABS Monocytes 0.8 10^3/uL (0.0-0.9); ABS Neutrophils 8.5 10^3/uL (1.5-7.6); ABS Nucleated RBC 0.01 10^3/ul; Eosinophil % 3.4 %; Hematocrit 43.3 % (35-45); Hemoglobin 14.7 g/dL (11.5-14.3); Lymphocyte % 25.6 %; Mean Corpuscular Hemoglobin 32.7 pg (27-33); Mean Corpuscular Volume 96.2 fL (80-97); Mean Platelet Volume 8.4 fL (7.5-11.2); Nucleated Red Blood Cells % 0.1 /100 WBC (0.0-0.4); Platelet Count 252 10^3/uL (150-450); White Blood Count 13.2 10^3/uL (3.8-11.8)
[2023-04-16 22:59] LABS: Albumin 4.6 g/dL (3.2-5.2); Albumin/Globulin Ratio 1.4 (1-3); C Reactive Protein 11.16 mg/L (<8.01); Calcium 9.3 mg/dL (8.6-10.3); Creatinine, Serum 0.84 mg/dL (0.51-0.95); Globulin 3.3 g/dL (2-4); Potassium 3.2 mmol/L (3.5-5.0); Total Bilirubin 0.4 mg/dL (0.2-1.0); Total Protein 7.9 g/dL (6.4-8.9); eGFR CKD-EPI 93.5 (>60)
[2023-04-16] MEDS ORDERED: Morphine 4 MG/ML VIAL (1 ml) IV ONE (23:42)
[2023-04-16 23:56] LABS: Erythrocyte Sed Rate 8 mm/Hr (0-19)
[2023-04-17] MEDS ORDERED: Vancomycin per Pharmacy 1 EA NOTE FOLLOW UP SCH (02:00)
[2023-04-17] MEDS: HYDROcodone/ACETAMIN 5/325 mg TAB PO PRN ×2 (04:27→10:22)
[2023-04-17] MEDS: Vancomycin 1000 MG in NS 0.9% 250 ML IVPB SCH ×2 (05:54→13:27)
[2023-04-17 06:15] LABS: Hematocrit 37.4 % (35-45); Hemoglobin 12.8 g/dL (11.5-14.3); Mean Corpuscular Hemoglobin 32.9 pg (27-33); Mean Corpuscular Hgb Conc 34.4 g/dL (31-36); Mean Corpuscular Volume 95.8 fL (80-97); Mean Platelet Volume 8.4 fL (7.5-11.2); Platelet Count 228 10^3/uL (150-450); Red Cell Distribution Width 12.9 % (12-17); White Blood Count 9.3 10^3/uL (3.8-11.8)
[2023-04-17 06:32] LABS: Calcium 8.2 mg/dL (8.6-10.3); Creatinine, Serum 0.68 mg/dL (0.51-0.95); Magnesium 1.8 mg/dL (1.9-2.7); Potassium 3.8 mmol/L (3.5-5.0); eGFR CKD-EPI 117.1 (>60)
[2023-04-17] MEDS ORDERED: cefTRIAXone 1 gm/50 mL D5W 1 GM/50 ML BAG IV SCH (22:00)
[2023-04-18] MEDS ORDERED: Vancomycin Trough Check NOTE FOLLOW UP ONE (05:30)
[2023-04-18 07:36] LABS: Creatinine, Serum 0.66 mg/dL (0.51-0.95)
[2023-04-18 09:57] VITALS: BP 116/69
== END 2023-04-18 10:22 | disposition home or self-care (01) ==
LOC: EDHOLD 21:23 → ED 21:23 → SUATTDRO 04-17 00:08 → MED 04-17 01:33
PROVIDERS: ADMIT Internal Medicine; ATTEND Internal Medicine